=== PATIENT | male | born 1970 | race Hispanic/Latino ===

== ENCOUNTER 2018-08-08 15:00 | Emergency (ER) | payer BC ==
[~2018-08-08] VITALS: Ht 180.3 cm; Wt 112.0 kg
[~2018-08-08 15:00] MED LIST: CIPRO500 MG PO; FLAGYL250 MG PO; KETOROLAC TROME10 MG PO; NORCO 10-325 T1 EACH PO
--- OUTSIDE RECORDS SUMMARY | 2018-08-08 15:02 | XMS REPORT ---
Author Author [facility] Address Unknown Phone Unavailable Care Team Providers Care Business Analyst Consultant Name Role Phone Unavailable Unavailable Problems This patient has no known problems. Allergies, Adverse Reactions, Alerts This patient has no known allergies or adverse reactions. Medications This patient has no known medications.
--- OUTSIDE RECORDS SUMMARY | 2018-08-08 15:02 | XMS REPORT | Summary of Care ---
Author [facility] Organization Unknown Address [facility] Phone Unavailable Care Team Providers Care Tubing Assembler Name Role Phone RAYSA WOODRUFF M.D. Unavailable Unavailable JUAN GARRIDO, MARINO Arzate Unavailable Unavailable Functional Status Name Dates Details Functional status health issues are not documented Status: Name Dates Details Cognitive status health issues are not documented Status: Problems Name Dates Details Left wrist pain (719.43, M25.532) Status: Active Other closed intra-articular fracture of distal end of left radius, initial encounter (813.42, S52.572A) Status: Active Pain in both upper extremities (729.5, M79.601) Status: Active Neck pain (723.1, M54.2) Status: Active Closed nondisplaced fracture of greater tuberosity of left humerus, initial encounter (812.03, S42.255A) Status: Active Anterior dislocation of humerus, closed, right, initial encounter (831.01, S43.014A) Status: Active Medications Name Dates Details Medications not documented Allergies and Adverse Reactions Name Dates Details Allergy history not documented Status: Procedures Procedure Dates Details [U] XRAY SHOULDER MIN 2 VWS LEFT 53955 Date: 07-Aug-2017 Immunization Name Dates Details Immunizations not documented Social History Name Dates Details Unknown if ever smoked Vital Signs Date Test Result Details No Known Vitals to report Results Date Description Value Details Results not documented Plan of Care Name Dates Details Planned Observations Planned Goals not documented Planned Encounters Appointment; RAYSA WOODRUFF M.D. On: 13-Aug-2017 13:15 Interventions Provided Labs/Procedures/Imaging* [U] XRAY SHOULDER MIN 2 VWS LEFT 08179; To Be Done: 13 Aug 2017 Instructions Name Dates Details Instructions not documented Encounters Appointment; JENIFER YOU M.D. Encounter Diagnosis: Problem not documented On: 04-Apr-2017 16:00 Appointment; NADIYA RODRIGUEZ NP Encounter Diagnosis: Problem not documented On: 09-Apr-2017 8:45 Appointment; JENIFER YOU M.D. Encounter Diagnosis: Problem not documented On: 10-Apr-2017 8:30 Appointment; RAYSA WOODRUFF M.D. Encounter Diagnosis: Problem not documented On: 16-Apr-2017 7:00 Appointment; RAYSA WOODRUFF M.D. Encounter Diagnosis: Problem not documented On: 23-Apr-2017 12:00 Appointment; JENIFER YOU M.D. Encounter Diagnosis: Problem not documented On: 23-Apr-2017 14:30 Appointment; JENIFER YOU M.D. Encounter Diagnosis: Problem not documented On: 08-May-2017 9:30 Appointment; NADIYA RODRIGUEZ NP Encounter Diagnosis: Problem not documented On: 14-May-2017 12:30 Appointment; JENIFER YOU M.D. Encounter Diagnosis: Problem not documented On: 29-May-2017 9:30 Appointment; RAYSA WOODRUFF M.D. Encounter Diagnosis: Problem not documented On: 04-Jun-2017 10:00 Appointment; NADIYA RODRIGUEZ NP Encounter Diagnosis: Problem not documented On: 02-Jul-2017 13:15 Appointment; RAYSA WOODRUFF M.D. Encounter Diagnosis: Problem not documented On: 13-Aug-2017 13:15
[2018-08-08] MEDS ORDERED: SODIUM CHLORIDE 0.9% 1000ML 1,000 ML IV STA ×2 (15:26→18:15)
[2018-08-08 16:06] LABS: COLOR,URINE YELLOW (YELLOW)
[2018-08-08 16:07] LABS: BILIRUBIN,URINE NEGATIVE (NEGATIVE); CLARITY,URINE HAZY (CLEAR); KETONES,URINE 1+ (NEGATIVE); LEUKOCYTE ESTERASE ,URINE NEGATIVE (NEGATIVE); NITRITE,URINE NEGATIVE (NEGATIVE); PROTEIN,URINE DIPSTICK 1+ (NEGATIVE); URINE UROBILINOGEN 0.2 mg/dL (0.2 - 1)
[2018-08-08 16:09] LABS: BACTERIA,URINE FEW /HPF; EPITHELIAL CELLS,URINE FEW /LPF; RBC,URINE 0-5 /HPF (0-5)
[2018-08-08 16:41] LABS: BASOPHILS # (AUTO) 0.1 (0.0-0.1); BASOPHILS % 0.5 % (0.0-1.0); EOSINOPHILS # (AUTO) 0.1 (0.0-0.4); EOSINOPHILS % 1.3 % (0.0-6.0); HEMATOCRIT 48.4 % (38.2-49.6); HEMOGLOBIN 16.9 g/dL (14.0-18.0); LYMPHOCYTES # (AUTO) 2.6 (1.0-3.2); LYMPHOCYTES % 26.8 % (18.0-39.1); MEAN CORPUSCULAR HEMOGLOBIN 31.4 pg (28-32); MEAN CORPUSCULAR HGB CONC 34.9 g/dL (31-35); MONOCYTES # (AUTO) 0.7 (0.2-0.8); MONOCYTES % 6.9 % (4.4-11.3); NEUTROPHILS # (AUTO) 6.2 (2.1-6.9); NEUTROPHILS % 64.1 % (38.7-80.0); PLATELET COUNT 211 x10e3/uL (140-360); RED BLOOD COUNT 5.38 x10e6/uL (4.3-5.7); RED CELL DISTRIBUTION WIDTH 12.7 % (11.7-14.4)
[2018-08-08 16:56] LABS: ALBUMIN 4.3 g/dL (3.5-5.0); ALBUMIN/GLOBULIN RATIO 1.1 (0.8-2.0); ANION GAP 23.4 mmol/L (8-16); CALCIUM 11.1 mg/dL (8.4-10.2); CREATININE, SERUM 1.66 mg/dL (0.72-1.25); POTASSIUM 4.4 mmol/L (3.5-5.1)
[2018-08-08] MEDS ORDERED: SODIUM CHLORIDE 0.9% 1000ML 1,000 ML IV ONE (17:00)
[2018-08-08] MEDS ORDERED: CEFTRIAXONE SOD 1 GM/NS 50 ML 50 ML IV ONE (17:00)
[2018-08-08] MEDS ORDERED: INSULIN REGULAR, HUMAN 100 UNIT/1 ML 3ML VIAL IV ONE (17:15)
[2018-08-08 17:25] LABS: ABG HCO3 21 mmol/L (23-28); ABG PCO2 34 mmHg (41-51); ABG PH 7.38 (7.31-7.41); ABG PO2 96 mmHg (80-105)
[2018-08-08] MEDS ORDERED: INSULIN REGULAR, HUMAN 100 UNIT/1 ML 3ML VIAL IV NR (19:15)
[2018-08-08 20:19] LABS: ANION GAP 15.7 mmol/L (8-16); BLOOD UREA NITROGEN 17 mg/dL (7-26); BUN/CREATININE RATIO 14 (6-25); CARBON DIOXIDE 21 mmol/L (22-29); CHLORIDE 108 mmol/L (98-107); CREATININE, SERUM 1.22 mg/dL (0.72-1.25); EST GLOMERULAR FILTRATION RATE > 60 ML/MIN (60-); GLUCOSE 383 mg/dL (74-118); POTASSIUM 3.7 mmol/L (3.5-5.1); SODIUM 141 mmol/L (136-145)
== END 2018-08-08 20:38 | disposition home or self-care (01) ==
LOC: ER 15:00
DX: E11.65 Type 2 diabetes mellitus with hyperglycemia (principal); R35.0 Frequency of micturition
CPT/HCPCS: 36415; 36600; 80048; 80053; 81001; 82805; 85025; 99284; J0696; J7030

== ENCOUNTER → 2018-08-24 | Outpatient (CLI) | payer BC ==
--- NOTE | 2018-08-24 18:04 | Diagnostic Imaging Report ---
EXAM: Right Upper Quadrant Ultrasound INDICATION: ^[id number] ^[id number] ^ELEVATED LIVER ENZYMES COMPARISON: None. TECHNIQUE: Transverse and longitudinal images of the right upper abdomen were obtained. FINDINGS: Liver: Size: 17 cm in the right midclavicular line, mildly enlarged Appearance: Increased echogenicity, smooth contour Mass: No focal masses Gallbladder: Stones/Sludge: None Wall: 0.2 cm Appearance: No pericholecystic fluid or hydrops. Sonographic Geller's Sign: Negative Bile Ducts: Intrahepatic Ducts: No dilatation Extrahepatic Ducts: Common bile duct measures 0.4 cm, no dilatation Pancreas: Visualized pancreas is unremarkable. Right Kidney: Size: 12 cm Echogenicity: Normal Parenchymal thickness: Normal Collecting system: No hydronephrosis Stones: None Cyst/Mass: None Vessels: Aorta: Visualized portions are normal Inferior Vena Cava: Visualized portions are normal Main Portal Vein: 1.3 cm, normal size with hepatopetal flow. Free Fluid: No ascites or pleural effusion IMPRESSION: Mildly enlarged steatotic liver. LV hyper to kid LV hypo to spleen Arango hyper to LV Liver Male < 16 cm Female < 15 cm Kidneys: NL 9-12 cm, <13 cm Spleen < 12 cm CBD < 7 mm CHD < 4-5 mm GB Wall < 3 mm Hydrops > 10 x 5 cm PV < 13 mm Panc. duct 3-2-[address]: [address] Sergio Young MD on 08/24/2018 6:01 PM
== END ==
LOC: US 16:22
PROVIDERS: ATTEND Family Medicine
DX: R74.8 Abnormal levels of other serum enzymes (principal)
CPT/HCPCS: 76705

== ENCOUNTER 2019-11-20 11:49 | Emergency (ER) | payer BC ==
[~2019-11-20] VITALS: Ht 180.3 cm; Wt 112.0 kg
[2019-11-20] MEDS ORDERED: DEXAMETHASONE SOD PHOS INJ 4 MG/ML VIAL ONE (12:23)
--- OUTSIDE RECORDS SUMMARY | 2019-11-20 12:25 | XMS REPORT | Continuity of Care Document ---
Author Author [facility] t Organization [facility] Address [address] [place] [address] Phone Unavailable Care Team Providers Care Outside Cutter Hand Name Role Phone NO, PCP PCP Unavailable MARINO MARTINEZ Attphys Unavailable RAYSA WOODRUFF M.D. Attphys Unavailable NADIYA RODRIGUEZ NP Attphys Unavailable JENIFER YOU M.D. Attphys Unavailable Payers Payer Name Policy Type Policy Number Effective Date Expiration Date Luh james [facility] Ppo [id number] [facility] Problems Condition Name Condition Details Condition Category Status Onset Date Resolution Date Last Treatment Date Treating Clinician Comments Source Diverticulitis with perforation Diverticulitis with perforation Pro blem Active 2014-08-22 00:00:00 [facility] Left wrist pain Left wrist pain Problem HL7.CCDAR2 Active [facility] Other closed intra-articular fracture of distal end of left radius, initial encounter Other closed intra-articular fracture of distal end of left radius, initial encounter Problem HL7.CCDAR2 Active [facility] Pain in both upper extremities Pain in both upper extremitie s Problem HL7.CCDAR2 Active [facility] Neck pain Neck pain Problem HL7.CCDAR2 Active [facility] Closed nondisplaced fracture of greater tuberosity of left humerus, initial encounter Closed nondisplaced fracture of greater tuberosity of left humerus, initial encounter Problem HL7.CCDAR2 Active [facility] Anterior dislocation of humerus, closed, right, initia l encounter Anterior dislocation of humerus, closed, right, initial encounter Problem HL7.CCDAR2 Active [facility] Allergies, Adverse Reactions, Alerts This patient has no known allergies or adverse reactions. Medications Ordered Medication Name Filled Medication Name Start Date Stop Da te Current Medication? Ordering Clinician Indication Dosage Frequency Signature (SIG) Comments Components Source Ciprofloxacin Hcl (Cipro) 500 Mg Tablet Ciprofloxacin Hcl (C ipro) 500 Mg Tablet Yes 500 Every 12 Hours [facility] Hydrocodone Bit/Acetaminophen ([place] 10-325 Tablet) 1 Each Tablet Hydrocodone Bit/Acetaminophen ([place] 10-325 Tablet) 1 Each Tablet Yes Daily Prn as needed for [facility] Ketorolac Tromethamine (Toradol) 10 Mg Tablet Ketorola c Tromethamine (Toradol) 10 Mg Tablet Yes Every 8 Hours as needed f or Abdominal Pain [facility] Metronidazole (Flagyl) 250 Mg Tablet Metronidazole (Flagyl) 250 Mg Tablet Yes 500 Every 8 Hours as needed for Abdominal Pa in [facility] Procedures Procedure Date / Time Performed Performing Clinician [facility] e [U] XRAY SHOULDER MIN 2 VWS LEFT [id number] 2017-08-07 00:00:00 [facility] [U] XRAY SHOULDER MIN 2 VWS LEFT [id number] 2017-06-27 00:00:00 [facility] [U] XRAY WRIST MIN 3 VWS LEFT [id number] 2017-05-26 00:00:00 [facility] [U] XRAY SHOULDER MIN 2 VWS LEFT [id number] 2017-05-23 00:00:00 [facility] [U] XRAY SHOULDER MIN 2 VWS LEFT [id number] 2017-05-05 00:00:00 [facility] [U] XRAY SHOULDER MIN 2 VWS LEFT [id number] 2017-05-01 00:00:00 [facility] [U] XRAY WRIST MIN 3 VWS LEFT [id number] 2017-04-28 00:00:00 [facility] [U] XRAY SHOULDER MIN 2 VWS LEFT [id number] 2017-04-24 00:00:00 [facility] [U] XRAY WRIST MIN 3 VWS LEFT [id number] 2017-04-23 00:00:00 [facility] [U] XRAY WRIST MIN 3 VWS LEFT [id number] 2017-04-18 00:00:00 [facility] [U] XRAY SHOULDER MIN 2 VWS LEFT [id number] 2017-04-10 00:00:00 [facility] [U] XRAY SHOULDER MIN 2 VWS RIGHT [id number] 2017-04-08 00:00:00 [facility] [U] XRAY WRIST MIN 3 VWS LEFT [id number] 2017-04-07 00:00:00 [facility] Encounters Start Date/Time End Date/Time Encounter Type Admission Type Attendi [facility] Care Department Encounter ID Source 2018-08-08 15:00:00 2018-08-08 20:38:00 Departed Emergency Room [facility] [id number] [facility] 2017-08-13 13:15:00 2017-08-13 13:15:00 Appointment; RAYSA WOODRUFF M.D. CHOO, ANDREW, M.D. [facility] Orthopedics [id number] [facility] 2017-07-02 13:15:00 2017-07-02 13:15:00 Appointment; NADIYA RODRIGUEZ N P BROWN, TAMI, NP [facility] Orthopedics [id number] [facility] 2017-06-04 10:00:00 2017-06-04 10:00:00 Appointment; RAYSA WOODRUFF M.D. CHOO, ANDREW, M.D. [facility] Orthopedics [id number] [facility] 2017-05-29 09:30:00 2017-05-29 09:30:00 Appointment; HEATHER YOU M.D. MANSOUR, ASHTON, M.D. [facility] Orthopedics at [facility] [id number] [facility] 2017-05-14 12:30:00 2017-05-14 12:30:00 Appointment; NADIYA RODRIGUEZ N P BROWN, TAMI, NP [facility] [id number] [facility] 2017-05-08 09:30:00 2017-05-08 09:30:00 Appointment; HEATHER YOU M.D. MANSOUR, ASHTON, M.D. [facility] Orthopedics at [facility] [id number] [facility] 2017-05-07 10:00:00 2017-05-07 10:00:00 Appointment; RAYSA WOODRUFF M.D. CHOO, ANDREW, M.D. [facility] Orthopedics [id number] [facility] 2017-05-06 10:30:00 2017-05-06 10:30:00 Appointment; HEATHER YOU M.D. MANSOUR, ASHTON M.D. [facility] Orthopedics at [facility] [id number] [facility] 2017-05-06 08:45:00 2017-05-06 08:45:00 Appointment; NADIYA RODRIGUEZ N P BROWN, TAMI, NP [facility] Orthopedics [id number] [facility] 2017-04-30 08:15:00 2017-04-30 08:15:00 Appointment; RAYSA WOODRUFF M.D. CHOO, ANDREW, M.D. [facility] Orthopedics [id number] [facility] 2017-04-29 10:45:00 2017-04-29 10:45:00 Appointment; HEATHER YOU M.D. MANSOUR, ASHTON, M.D. [facility] Orthopedics at [facility] [id number] [facility] 2017-04-23 14:30:00 2017-04-23 14:30:00 Appointment; HEATHER YOU M.D. MANSOUR, ASHTON, M.D. [facility] Orthopedics at [facility] [id number] [facility] 2017-04-23 12:00:00 2017-04-23 12:00:00 Appointment; RAYSA WOODRUFF M.D. CHOO, ANDREW, M.D. [facility] [id number] [facility] 2017-04-17 10:00:00 2017-04-17 10:00:00 Appointment; HEATHER YOU M.D. MANSOUR, ASHTON, M.D. [facility] Orthopedics at [facility] [id number] [facility] 2017-04-16 07:00:00 2017-04-16 07:00:00 Appointment; RAYSA WOODRUFF M.D. CHOO, ANDREW, M.D. [facility] [id number] [facility] 2017-04-10 08:30:00 2017-04-10 08:30:00 Appointment; HEATHER YOU M.D. MANSOUR, ASHTON, M.D. [facility] Orthopedics at [facility] [id number] [facility] 2017-04-09 08:45:00 2017-04-09 08:45:00 Appointment; RAYSA WOODRUFF M.D. CHOO, ANDREW, M.D. [facility] Orthopedics [id number] [facility] 2017-04-09 08:45:00 2017-04-09 08:45:00 Appointment; NADIYA RODRIGUEZ N P BROWN, TAMI, NP [facility] [id number] [facility] 2017-04-04 16:00:00 2017-04-04 16:00:00 Appointment; HEATHER YOU M.D. MANSOUR, ASHTON, M.D. [facility] [id number] [facility] Results Test Description Test Time Test Comments Results Result Comments Source US LIVER 2018-08-24 17:59:00 [place] [address] Patient Name: ANDREW WILLIAMSON MR #: [id number] : 1970 Age/Sex: 48/M Req #: [id number] Adm Physician: Ordered by: JUAN GARRIDO, MARINO Arzate MD Report #: [id number] Location: Room/Bed: Procedure: [id number] US/US LIVER Exam Date: 08/24/18 Exam Time: 170 REPORT STATUS: Signed EXAM: Right Upper Quadrant Ultrasound INDICATION: [id number] ELEVATED LIVER ENZYMES COMPARISON: None. TECHNIQUE: Transverse and longitudinal images of the right upper abdomen were obtained. FINDINGS: Liver: Size: 17 cm in the right midclavicular line, mildly enlarged Appearance: Increased echogenicity, smooth contour Mass: No focal masses Gallbladder: Stones/Sludge: None Wall: 0.2 cm Appearance: No pericholecystic fluid or hydrops. Sonographic Geller's Sign: Negative Bile Ducts: Intrahepatic Ducts: No dilatation Extrahepatic Ducts: Common bile duct measures 0.4 cm, no dilatation Pancreas: Visualized pancreas is unremarkable. Right Kidney: Size: 12 cm Echogenicity: Normal Parenchymal thickness: Normal Collecting system: No hydronephrosis Stones: None Cyst/Mass: None Vessels: Aorta: Visualized portions are normal Inferior Vena Cava: Visualized portions are normal Main Portal Vein: 1.3 cm, normal size with hepatopetal flow. Free Fluid: No ascites or pleural effusion IMPRESSION: Mildly enlarged steatotic liver. LV hyper to kid LV hypo to spleen Arango hyper to LV Liver Male < 16 cm Female < 15 cm Kidneys: NL 9-12 cm, <13 cm Spleen < 12 cm CBD < 7 mm CHD < 4-5 mm GB Wall < 3 mm Hydrops > 10 x 5 cm PV < 13 mm Panc. duct 3-2-1 Signed by: Dr. Sergio North MD on 08/24/2018 6:01 PM Dictated By: SERGIO NORTH MD 00 Transcribed By: LAURA on 08/24/181800 COPY TO: MARINO MARTINEZ Sodium Level 2018-08-08 20:23:00 Test Item Sodium Level (test code = 2951-2) 141 136-145 [facility] Zyxvd2379-49-77 20:23:00* Test Item Value Reference Range Interpretation Comments Potassium Level (test code = 2823-3) 3.7 3.5-5.1 [facility] HospitalChloride Xpmpx2324-01-26 20:23:00* Test Item Value Reference Range Interpretation Comments Chloride Level (test code = 2075-0) 108 98-107 H [facility] HospitalCarbon Dioxide Hsicm5401-37-25 20:23:00* Test Item Value Reference Range Interpretation Comments Carbon Dioxide Level (test code = 2028-9) 21 22-29 L [facility] HospitalAnion Yda2055-92-54 20:23:00* Test Item Value Reference Range Interpretation Comments Anion Gap (test code = 63400-1) 15.7 8-16 [facility] HospitalBlood Urea Ddnfjsfs0708-10-51 20:23:00* Test Item Value Reference Range Interpretation Comments Blood Urea Nitrogen (test code = 3094-0) 17 7-26 [facility] HospitalCreatinine2019-04-20 20:23:00* Test Item Value Reference Range Interpretation Comments Creatinine (test code = 2160-0) 1.22 0.72-1.25 [facility] HospitalBUN/Creatinine Oqunu1098-63-44 20:23:00* Test Item Value Reference Range Interpretation Comments BUN/Creatinine Ratio (test code = 3097-3) 14 6-25 [facility] HospitalEstimat Glomerular Filtration Rate 2018-08-08 20:23:00* Test Item Value Reference Range Interpretation Comments Estimat Glomerular Filtration Rate (test code = 095788248) > 60 >60 Ranges were taken from the National Kidney Disease Education Program and the [facility] literature.Reference ranges:60 or greater: Juywlz80-38 ( for 3 consecutive months): Chronic kidney disease 15 or less: Kidney failureCHRISTUS Saint Michael HospitalGlucose Cltyz7173-68-95 20:23:00* Test Item Value Reference Range Interpretation Comments Glucose Level (test code = LMC3913) 383 74-118 H [facility] HospitalCalcium Uyvnz1104-45-88 20:23:00* Test Item Value Reference Range Interpretation Comments Calcium Level (test code = 41895-6) 9.0 8.4-10.2 [facility] HospitalArterial Blood sT3621-26-70 17:26:00* Test Item Value Reference Range Interpretation Comments Arterial Blood pH (test code = 2744-1) 7.38 7.31-7.41 Results called/hand delivered to [] at 1725 on 08/08/18 by Yusuf Muir. RB [place]. [facility] HospitalArterial Blood Partial Pressure CO2 2018-08-08 17:26:00* Test Item Value Reference Range Interpretation Comments Arterial Blood Partial Pressure CO2 (test code = 2018-11) 34 41-51 L [facility] HospitalArterial Blood Partial Pressure O2 2018-08-08 17:26:00* Test Item Value Reference Range Interpretation Comments Arterial Blood Partial Pressure O2 (test code = 2018-11) 96 80-105 [facility] HospitalArterial Blood [id number] 17:26:00* Test Item Value Reference Range Interpretation Comments Arterial Blood HCO3 (test code = 1960-4) 21 23-28 L [facility] HospitalArterial Blood Base Lbomls5348-80-58 17:26:00* Test Item Value Reference Range Interpretation Comments Arterial Blood Base Excess (test code = 1925-7) -5.0 -2-3 L [facility] HospitalArterial Blood Oxygen Saturation 2018-08-08 17:26:00* Test Item Value Reference Range Interpretation Comments Arterial Blood Oxygen Saturation (test code = 2708-6) 97.0 95-98 [facility] HospitalFiO22019-04-20 17:26:00* Test Item Value Reference Range Interpretation Comments FiO2 (test code = FiO2) 21 ROOM AIR LEFT RADIALCHRISTUS Saint Michael HospitalTotal Bilirubin 2018-08-08 17:03:00* Test Item Value Reference Range Interpretation Comments Total Bilirubin (test code = 1975-2) 1.0 0.2-1.2 [facility] HospitalAspartate Amino Transf (AST/SGOT) 2018-08-08 17:03:00* Test Item Value Reference Range Interpretation Comments Aspartate Amino Transf (AST/SGOT) (test code = Aspartate Amino Transf (AST/SGOT)) 55 5-34 H [facility] HospitalAlanine Aminotransferase (ALT/SGPT) 2018-08-08 17:03:00* Test Item Value Reference Range Interpretation Comments Alanine Aminotransferase (ALT/SGPT) (test code = 1742-6) 102 0-55 H [facility] HospitalTotal Noxzurb2544-32-64 17:03:00* Test Item Value Reference Range Interpretation Comments Total Protein (test code = 2885-2) 8.3 6.5-8.1 H [facility] HospitalAlbumin2019-04-20 17:03:00* Test Item Value Reference Range Interpretation Comments Albumin (test code = 1751-7) 4.3 3.5-5.0 [facility] HospitalGlobulin2019-04-20 17:03:00* Test Item Value Reference Range Interpretation Comments Globulin (test code = 44290-6) 4.0 2.3-3.5 H [facility] HospitalAlbumin/Globulin Smtrb2923-10-47 17:03:00 * Test Item Value Reference Range Interpretation Comments Albumin/Globulin Ratio (test code = 1759-0) 1.1 0.8-2.0 [facility] HospitalAlkaline Kzlxgllebiy3629-13-48 17:03:00* Test Item Value Reference Range Interpretation Comments Alkaline Phosphatase (test code = 6768-6) 156 40-150 H [facility] HospitalWhite Blood Duuvo5752-04-40 16:45:00* Test Item Value Reference Range Interpretation Comments White Blood Count (test code = 6690-2) 9.63 4.8-10.8 [facility] HospitalRed Blood Nknny1575-74-69 16:45:00* Test Item Value Reference Range Interpretation Comments Red Blood Count (test code = 789-8) 5.38 4.3-5.7 [facility] HospitalHemoglobin2019-04-20 16:45:00* Test Item Value Reference Range Interpretation Comments Hemoglobin (test code = 88849-6) 16.9 14.0-18.0 [facility] HospitalHematocrit2019-04-20 16:45:00* Test Item Value Reference Range Interpretation Comments Hematocrit (test code = 4544-3) 48.4 38.2-49.6 [facility] HospitalMean Corpuscular Zkjius4701-90-08 16:45:00* Test Item Value Reference Range Interpretation Comments Mean Corpuscular Volume (test code = 787-2) 90.0 81-99 [facility] HospitalMean Corpuscular Rfyerymlob1553-50-01 16:45:00* Test Item Value Reference Range Interpretation Comments Mean Corpuscular Hemoglobin (test code = 785-6) 31.4 28-32 [facility] HospitalMean Corpuscular Hemoglobin Concent 2018-08-08 16:45:00* Test Item Value Reference Range Interpretation Comments Mean Corpuscular Hemoglobin Concent (test code = 786-4) 34.9 31-35 [facility] HospitalRed Cell Distribution Uvixm9401-32-66 16:45:00* Test Item Value Reference Range Interpretation Comments Red Cell Distribution Width (test code = 48953-5) 12.7 11.7 -14.4 [facility] HospitalPlatelet Sqjwy8225-26-74 16:45:00* Test Item Value Reference Range Interpretation Comments Platelet Count (test code = 777-3) 211 140-360 [facility] HospitalNeutrophils (%) (Auto)2018-08-08 16:45:00 * Test Item Value Reference Range Interpretation Comments Neutrophils (%) (Auto) (test code = 52327-1) 64.1 38.7-80.0 [facility] HospitalLymphocytes (%) (Auto)2018-08-08 16:45:00 * Test Item Value Reference Range Interpretation Comments Lymphocytes (%) (Auto) (test code = 736-9) 26.8 18.0-39.1 [facility] HospitalMonocytes (%) (Auto)2018-08-08 16:45:00* Test Item Value Reference Range Interpretation Comments Monocytes (%) (Auto) (test code = 5905-5) 6.9 4.4-11.3 [facility] HospitalEosinophils (%) (Auto)2018-08-08 16:45:00 * Test Item Value Reference Range Interpretation Comments Eosinophils (%) (Auto) (test code = 713-8) 1.3 0.0-6.0 [facility] HospitalBasophils (%) (Auto)2018-08-08 16:45:00* Test Item Value Reference Range Interpretation Comments Basophils (%) (Auto) (test code = 706-2) 0.5 0.0-1.0 [facility] HospitalIM GRANULOCYTES %2018-08-08 16:45:00* Test Item Value Reference Range Interpretation Comments IM GRANULOCYTES % (test code = IM GRANULOCYTES %) 0.4 0.0- 1.0 [facility] HospitalNeutrophils # (Auto)2018-08-08 16:45:00* Test Item Value Reference Range Interpretation Comments Neutrophils # (Auto) (test code = 751-8) 6.2 2.1-6.9 [facility] HospitalLymphocytes # (Auto)2018-08-08 16:45:00* Test Item Value Reference Range Interpretation Comments Lymphocytes # (Auto) (test code = 02531-3) 2.6 1.0-3.2 [facility] HospitalMonocytes # (Auto)2018-08-08 16:45:00* Test Item Value Reference Range Interpretation Comments Monocytes # (Auto) (test code = 742-7) 0.7 0.2-0.8 [facility] HospitalEosinophils # (Auto)2018-08-08 16:45:00* Test Item Value Reference Range Interpretation Comments Eosinophils # (Auto) (test code = 711-2) 0.1 0.0-0.4 [facility] HospitalBasophils # (Auto)2018-08-08 16:45:00* Test Item Value Reference Range Interpretation Comments Basophils # (Auto) (test code = 704-7) 0.1 0.0-0.1 [facility] HospitalAbsolute Immature Granulocyte (auto 2018-08-08 16:45:00* Test Item Value Reference Range Interpretation Comments Absolute Immature Granulocyte (auto (jorge t code = Absolute Immature Granulocyte (auto) 0.04 0-0.1 [facility] HospitalUrine Hlkkb4791-40-71 16:09:00* Test Item Value Reference Range Interpretation Comments Urine Color (test code = 5778-6) YELLOW YELLOW [facility] HospitalUrine Xwfjxzt1721-41-71 16:09:00* Test Item Value Reference Range Interpretation Comments Urine Clarity (test code = 56825-3) HAZY CLEAR [facility] HospitalUrine Specific Itrcgio2932-80-68 16:09:00 * Test Item Value Reference Range Interpretation Comments Urine Specific [place] (test code = 5811-5) 1.005 1.010-1.02 5 L [facility] HospitalUrine pF5512-73-57 16:09:00* Test Item Value Reference Range Interpretation Comments Urine pH (test code = 06019-7) 6 5-7 [facility] HospitalU[facility] Leukocyte Jtelfznu9985-90-19 16:09:00* Test Item Value Reference Range Interpretation Comments Urine Leukocyte Esterase (test code = 5799-2) NEGATIVE NEGATIVE [facility] HospitalUrine Rozgwjp3448-02-47 16:09:00* Test Item Value Reference Range Interpretation Comments Urine Nitrite (test code = 85334-5) NEGATIVE NEGATIVE [facility] HospitalUrine Sxhwkgc0325-41-12 16:09:00* Test Item Value Reference Range Interpretation Comments Urine Protein (test code = 5804-0) 1+ NEGATIVE H [facility] HospitalUrine Glucose (UA)2018-08-08 16:09:00* Test Item Value Reference Range Interpretation Comments Urine Glucose (UA) (test code = 2349-9) 3+ NEGATIVE H [facility] HospitalUrine Witwlqk7446-33-08 16:09:00* Test Item Value Reference Range Interpretation Comments Urine Ketones (test code = 54926-8) 1+ NEGATIVE H [facility] HospitalUrine Qagnpvkprvfj5585-90-22 16:09:00* Test Item Value Reference Range Interpretation Comments Urine Urobilinogen (test code = 21304-3) 0.2 0.2-1 [facility] HospitalU[facility] Gosovbbdw2785-44-66 16:09:00* Test Item Value Reference Range Interpretation Comments Urine Bilirubin (test code = 1978-6) NEGATIVE NEGATIVE [facility] HospitalU[facility] Nucps8599-24-35 16:09:00* Test Item Value Reference Range Interpretation Comments Urine Blood (test code = 05858-8) TRACE NEGATIVE H [facility] HospitalU[facility] FVI4403-90-32 16:09:00* Test Item Value Reference Range Interpretation Comments Urine WBC (test code = 5821-4) 11-20 0-5 H [facility] HospitalU[facility] [id number] 16:09:00* Test Item Value Reference Range Interpretation Comments Urine RBC (test code = 80047-6) 0-5 0-5 [facility] HospitalU[facility] Ndmealcc6226-46-76 16:09:00* Test Item Value Reference Range Interpretation Comments Urine Bacteria (test code = 21821-6) FEW NONE [facility] HospitalUrine Epithelial Dupxh7501-13-42 16:09:00 * Test Item Value Reference Range Interpretation Comments Urine Epithelial Cells (test code = 65286-5) FEW NONE [facility][U] XRAY SHOULDER MIN 2 VWS LEFT [id number] 2017-06-04 10:22:00Images acquired, not reported on this accession number. [facility][U] XRAY SHOULDER MIN 2 VWS RIGHT [id number] 10:22:00Images acquired, not reported on this accession number.[facility][U] XRAY WRIST MIN 3 VWS LEFT [id number] 08:45:00Images acquired, not reported on this accession number.[facility] [U] XRAY SHOULDER MIN 2 VWS RIGHT [id number] 12:12:00Images acquired, not reported on this accession number.[facility][U] XRAY SHOULDER MIN 2 VWS LEFT [id number] 12:12:00Images acquired, not reported on this accession number.[facility][U] XRAY WRIST MIN 3 VWS LEFT [id number] 09:05:00Images acquired, not reported on this accession number.[facility][U] XRAY WRIST MIN 3 VWS LEFT [id number] 2017-04-23 14:16:00Images acquired, not reported on this accession number. [facility][U] XRAY WRIST MIN 3 VWS LEFT [id number] 08:37:00Images acquired, not reported on this accession number.[facility][U] XRAY SHOULDER MIN 2 VWS LEFT [id number] 08:07:00Images acquired, not reported on this accession number.[facility] [U] XRAY SHOULDER MIN 2 VWS RIGHT [id number] 08:07:00Images acquired, not reported on this accession number.[facility][U] XRAY WRIST MIN 3 VWS LEFT [id number] 15:42:00Images acquired, not reported on this accession number.[facility]
[2019-11-20] MEDS ORDERED: DEXAMETHASONE SOD PHOS 10 MG/1 ML VIAL IM ONE (12:30)
[2019-11-20] MEDS ORDERED: HYDROCODONE/APAP 10MG-325MG TAB PO ONE (12:30)
--- NOTE | 2019-11-20 12:35 | Emergency Department Note ---
History of Present Illnes History of Present Illness Chief Complaint: Extremity Trauma/Pain History of Present Illness This is a 49 year old male LEFT KNEE SWELLING. SAME PROBLEM IN THE PAST. PT STATES FLUID DRAINED FROM KNEE BEFORE WHICH HELPED. PT ON CRUTCHES. NOT ABLE TO BEND, BUT CANT MOVE IT FAR. MD IN TRIAGE TO [facility] PT. HX OF GOUT. NO TRAUMA Historian: Patient Arrival Mode: Car [employer] Se[employer] Required: No Onset (how long ago): day(s) (2) Location: LEFT KNEE Quality: PAIN/SWELLING Radiation: Reports non-radiation Severity: moderate Onset quality: gradual Timing of current episode: constant Progression: worsening Context: Denies recent illness Relieving factors: none Exacerbating factors: none Associated symptoms: Reports denies other symptoms; Denies fever/chills Treatments prior to arrival: none Past Medical/Family History Physician Review I have reviewed the patient's past medical and family history. Any updates have been documented here. Past Medical History Recent Fever: No Clinical Suspicion of Infectio: No New/Unexplained Change in Ment: No Past Medical History: None Other Medical History: GOUT Other Surgery: BILATERAL SHOULDERS Social History Smoking Cessation: Never Smoker Counseling Performed: No Alcohol Use: None Any Illegal Drug Use: No Physically hurt or threatened: No Family History Family history of heart diseas: No Other Last Tetanus: NA Any Pre-Existing Lines (PICC,: No Review of Systems Review of Systems Constitutional: Reports no symptoms EENTM: Reports no symptoms Cardiovascular: Reports no symptoms Respiratory: Reports no symptoms Gastrointestinal: Reports no symptoms Genitourinary: Reports no symptoms Musculoskeletal: Reports as per HPI Integumentary: Reports no symptoms Neurological: Reports no symptoms Psychological: Reports no symptoms Endocrine: Reports no symptoms Hematological/Lymphatic: Reports no symptoms Physical Exam Related Data Allergies: Coded Allergies: No Known Allergies (Unverified , 08/08/18) Triage Vital Signs Vital Signs Date Time Temp Pulse Resp B/P (MAP) Pulse Ox O2 Delivery O2 Flow Rate FiO2 11/20/19 12:10 99.4 84 20 155/89 99 Room Air Vital signs reviewed: Yes Physical Exam CONSTITUTIONAL Constitutional: Present well-developed, Present well-nourished HENT HENT: Present normocephalic, Present atraumatic, Present oropharynx clear/moist, Present nose normal HENT L/R: Present left ext ear normal, Present right ext ear normal EYES Eyes: Reports PERRL, Reports conjunctivae normal NECK Neck: Present ROM normal PULMONARY Pulmonary: Present effort normal, Present breath sounds normal CARDIOVASCULAR Cardiovascular: Present regular rhythm, Present heart sounds normal, Present capillary refill normal, Present normal rate GASTROINTESTINAL Abdominal: Present soft, Present nontender, Present bowel sounds normal GENITOURINARY Genitourinary: Present exam deferred SKIN Skin: Present warm, Present dry MUSCULOSKELETAL Musculoskeletal: Present other (LEFT KNEE WITH MILD EFFUSION, TENDER WITH ROM BUT GOOD ROM AND NO PAIN WITH AXIAL LOADING) NEUROLOGICAL Neurological: Present alert, Present oriented x 3, Present no gross motor or sensory deficits PSYCHOLOGICAL Psychological: Present mood/affect normal, Present judgement normal Assessment & Plan Medical Decision Making MDM RECURRENT LEFT KNEE PAIN WITH H/O GOUT Reassessment Reassessment I GAVE DECADRON IM, NORCO 10 PO. DC WITH PREDNISONE 60 QDAY X 3 DAYS, THEN INDOCIN, TYL #3, F/U PCP FRIDAY, RTED PRN INCR PAIN, FEVER, ETC Assessment & Plan Final Impression: (1) Gout Depart Disposition: HOME, SELF-CARE Last Vital Signs Date Time Temp Pulse Resp B/P (MAP) Pulse Ox O2 Delivery O2 Flow Rate FiO2 11/20/19 12:10 99.4 84 20 155/89 99 Room Air Home Meds Reported Medications Ketorolac Tromethamine (TORADOL) 10 Mg Tablet, MG PO Q8H PRN for ABDOMINAL PAIN, #15 08/28/14 Hydrocodone Bit/Acetaminophen (NORCO 10-325 TABLET) 1 Each Tablet, MG PO DAILY PRN PRN, #30 15 Metronidazole (FLAGYL) 250 Mg Tablet, 500 MG PO Q8H PRN for ABDOMINAL PAIN, #63 08/28/14 Ciprofloxacin Hcl (CIPRO) 500 Mg Tablet, 500 MG PO Q12H, #42 TAB 08/28/14 Medications in the ED Dexamethasone Sodium Phosphate 10 mg ONCE ONCE IM Last administered on 11/20/19at 12:20; Admin Dose 10 MG; Start 11/20/19 at 12:30; Stop 11/20/19 at 12:31 Acetaminophen/ Hydrocodone Bitart 1 ea ONCE ONCE PO ; Start 11/20/19 at 12:30; Stop 11/20/19 at 12:31 Dexamethasone Sodium Phosphate 12 mg STK-MED ONCE .ROUTE ; Start 11/20/19 at 12:23; Stop 11/20/19 at 12:17; Status DC CASSI [email or web address] MD Nov 20, 2019 12:35
== END 2019-11-20 13:06 | disposition home or self-care (01) ==
LOC: ER 12:20
DX: M10.9 Gout, unspecified (principal); R50.9 Fever, unspecified; M25.462 Effusion, left knee
CPT/HCPCS: 99283; J1100

== ENCOUNTER 2021-01-30 14:46 | Emergency (ER) | payer BC ==
[~2021-01-30] VITALS: Ht 180.3 cm; Wt 112.0 kg
[2021-01-30] MEDS ORDERED: DEXAMETHASONE 4 MG TAB ONE (15:53)
[2021-01-30] MEDS ORDERED: DEXAMETHASONE 4 MG TAB PO ONE (16:00)
== END 2021-01-30 15:50 | disposition home or self-care (01) ==
LOC: ER 15:47
DX: M25.562 Pain in left knee (principal); Y93.01 Activity, walking, marching and hiking
CPT/HCPCS: 99283; J8540